=== PATIENT | female | born 1995 | race African-American/Black ===

== ENCOUNTER 2017-12-22 08:10 | Emergency (ER) | payer SELFPAY ==
[~2017-12-22] VITALS: Ht 172.7 cm; Wt 85.5 kg
[2017-12-22 08:53] LABS: MICROSCOPIC AUTO
[2017-12-22 08:55] LABS: CULTURE INDICATED? YES
[2017-12-22 09:42] VITALS: BP 131/81
[2017-12-22 09:47] LABS: HCG UR SG 1.021 (1.003-1.030)
[2017-12-22 10:03] LABS: CLUE CELLS NONE SEEN (NONE SEEN); WET PREP WBCS FEW (FEW)
[2017-12-22] MEDS ORDERED: CEFTRIAXONE 250 MG ONE (10:13)
[2017-12-22] MEDS ORDERED: AZITHROMYCIN 250 MG TABLET ONE (10:14)
[2017-12-22] MEDS ORDERED: AZITHROMYCIN 500 MG TABLET PO ONE (11:00)
[2017-12-22] MEDS ORDERED: FLUCONAZOLE 100 MG TABLET PO ONE (11:00)
[2017-12-22] MEDS ORDERED: CEFTRIAXONE 250 MG IM ONE (11:00)
== END 2017-12-22 10:45 | disposition home or self-care (01) ==
LOC: ED 08:47
DX: B37.3 Candidiasis of vulva and vagina (principal); F17.200 Nicotine dependence, unspecified, uncomplicated; R82.99 Other abnormal findings in urine
CPT/HCPCS: 81001; 81025; 87086; 87210; 87491; 87591; 87808; 96372; 99284; J0696

== ENCOUNTER 2018-12-12 08:10 | Emergency (ER) | payer OTHER ==
[~2018-12-12] VITALS: Ht 175.3 cm; Wt 87.5 kg
[2018-12-12 08:11] VITALS: BP 130/86
[2018-12-12] MEDS ORDERED: SULF1TAB24 PO (08:23)
[2018-12-12] MEDS ORDERED: FLUCONAZOLE 100 MG TABLET ONE (08:46)
[2018-12-12] MEDS ORDERED: FLUCONAZOLE 50 MG TABLET PO ONE (09:00)
[2018-12-12 09:15] LABS: ANION GAP 6 mmol/L (5-15); CHLORIDE 106 mmol/L (98-107); CREATININE 0.93 mg/dL (0.55-1.02)
[2018-12-12 09:22] LABS: MEAN CORPUSCULAR HEMOGLOBIN 23.7 pg (27.0-34.8); MEAN CORPUSCULAR HGB CONC 31.8 g/dL (32.4-35.8); MEAN CORPUSCULAR VOLUME 74.7 fL (80-100); MEAN PLATELET VOLUME 7.9 fL (7.4-10.4); PLATELET COUNT 342 x10^3/uL (130-400)
[2018-12-12 09:24] LABS: BASOPHILS # (AUTO) 0.03 x10^3/uL (0-0.1); BASOPHILS % (AUTO) 0 % (0-1); EOSINOPHILS # (AUTO) 0.31 x10^3/uL (0-0.4); EOSINOPHILS % (AUTO) 4 % (1-7); LYMPHOCYTES # (AUTO) 1.09 x10^3/uL (1-3.4); LYMPHOCYTES % (AUTO) 15 % (22-44); MD SCAN; MONOCYTES % (AUTO) 5 % (2-9); NEUTROPHILS # (AUTO) 5.59 x10^3/uL (1.8-6.8); NEUTROPHILS % (AUTO) 75 % (42-75)
--- NOTE | 2018-12-12 10:42 | NUR ---
Patient/Caregiver given discharge instructions and they have confirmed that they understand the instructions. Patient ambulatory with steady gait.
== END 2018-12-12 10:43 | disposition home or self-care (01) ==
LOC: ED 09:38
DX: B37.3 Candidiasis of vulva and vagina (principal); D50.0 Iron deficiency anemia secondary to blood loss (chronic); J45.909 Unspecified asthma, uncomplicated
CPT/HCPCS: 36415; 80048; 84443; 84703; 85025; 99283

== ENCOUNTER 2019-05-09 06:40 | Day surgery (SDC) | payer OTHER ==
[~2019-05-09] VITALS: Ht 175.3 cm; Wt 85.1 kg
[~2019-05-09 06:40] MED LIST: DEPO; OMEP10CA4 PO; SULF1TAB24 PO
[2019-05-09] MEDS ORDERED: LACTATED RINGERS 1,000 ML IV SCH (07:11)
[2019-05-09 07:12] VITALS: BP 125/85
[2019-05-09] MEDS ORDERED: FENTANYL PF 250 MCG/5ML ONE (07:42)
[2019-05-09] MEDS ORDERED: MIDAZOLAM 1 MG/ML, 2ML ONE (07:42)
[2019-05-09] MEDS ORDERED: WATER-INJECTION,STERILE 10 ML IV ONE (07:43)
[2019-05-09] MEDS ORDERED: CEFAZOLIN 1,000 MG ONE ×2 (07:43)
[2019-05-09 07:44] LABS: HCG UR SG 1.017 (1.003-1.030)
[2019-05-09] MEDS ORDERED: ROPIvacaine/PF 0.5%, 30 ML ONE (07:45)
[2019-05-09] MEDS ORDERED: BUPIVACAINE/PF 0.25% ONE (07:45)
[2019-05-09] MEDS ORDERED: EPINEPHRINE 1 MG/ML, 1ML ONE (08:16)
[2019-05-09] MEDS ORDERED: BUPIVACAINE/PF 0.5% ONE (08:16)
[2019-05-09] MEDS ORDERED: LIDOCAINE 1%, 20ML ONE (08:16)
[2019-05-09] MEDS ORDERED: DEXAMETHASONE 4 MG/ML, 5ML ONE (08:16)
[2019-05-09] MEDS ORDERED: MEPERIDINE/PF 25MG/0.5ML IVPush PRN (09:30)
[2019-05-09] MEDS ORDERED: ALBUTEROL SULFATE 2.5 MG/3 ML NPPB PRN (09:30)
[2019-05-09] MEDS ORDERED: ACETAMINOPHEN 325 MG TABLET PO PRN (09:30)
[2019-05-09] MEDS ORDERED: PROMETHAZINE 25 MG/ML, 1ML IV PRN (09:30)
[2019-05-09] MEDS ORDERED: hydrALAzine 20 MG/ML, 1ML IV PRN (09:30)
[2019-05-09] MEDS ORDERED: OXYcodone 5 MG/5 ML ORAL.SOL UDC PO PRN (09:30)
[2019-05-09] MEDS ORDERED: HYDROmorphone 2 MG/ML, 1ML IVPush PRN (09:30)
[2019-05-09] MEDS ORDERED: FENTANYL PF 100 MCG/2ML IV PRN (09:30)
[2019-05-09] MEDS ORDERED: HALOPERIDOL 5 MG/ML IV PRN (09:30)
[2019-05-09] MEDS ORDERED: PROMETHAZINE 25 MG/ML, 1ML ONE (10:58)
[2019-05-09] MEDS ORDERED: ACETAMINOPHEN 650 MG/20.3 ML UDC ONE (11:21)
[2019-05-09] MEDS ORDERED: OXYcodone 5 MG/5 ML ORAL.SOL UDC ONE (11:22)
[2019-05-09] MEDS ORDERED: DEXAMETHASONE 4 MG/ML, 1ML ONE (15:23)
[2019-05-09] MEDS ORDERED: METOCLOPRAMIDE 5 MG/ML, 2ML ONE (15:23)
[2019-05-09] MEDS ORDERED: ONDANSETRON 2MG/ML, 2ML ONE (15:23)
[2019-05-09] MEDS ORDERED: PROPOFOL 10 MG/ML, 20ML ONE (15:23)
== END 2019-05-09 13:10 | disposition home or self-care (01) ==
LOC: OUT 06:40
PROVIDERS: ATTEND Podiatrist Foot & Ankle Surgery
DX: Q66.52 Congenital pes planus, left foot (principal); Q66.89 Other specified congenital deformities of feet; J45.909 Unspecified asthma, uncomplicated; Z91.010 Allergy to peanuts; Z79.899 Other long term (current) drug therapy
CPT/HCPCS: 27687; 28238; 28300; 64445; 64447; 81025; C1713; C1776; J0171; J0690; J1100; J2250; J2405; J2550; J2704; J2765; J2795; J3010; J3490; J7120

== ENCOUNTER 2019-05-17 16:53 | Emergency (ER) | payer OTHER ==
[~2019-05-17] VITALS: Ht 175.3 cm; Wt 85.0 kg
[2019-05-17 16:56] VITALS: BP 128/81
--- NOTE | 2019-05-17 17:14 | NUR ---
PT STATES SHE THINKS SHE HAD AN ALLERGIC REACTION TO SOMETHING IN THE FOOD SHE ATE BECUASE SHE HAD SWELLING OF THE LIPS AND EYES THAT WENT AWAY AFTER 50MG OF PO BENADRYL. 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 PT DENIES SYMPTOMS AT THIS TIME. PT DENIES SOB, DIFFICULTY SWALLOWING. BF AT BEDSIDE.
[2019-05-17] MEDS ORDERED: FAMOTIDINE 20 MG TABLET ONE (17:44)
[2019-05-17] MEDS ORDERED: FAMOTIDINE 20 MG TABLET PO ONE (18:00)
== END 2019-05-17 19:02 | disposition home or self-care (01) ==
LOC: ED 18:50
DX: T78.40XA Allergy, unspecified, initial encounter (principal); R21 Rash and other nonspecific skin eruption; J45.909 Unspecified asthma, uncomplicated; X58.XXXA Exposure to other specified factors, initial encounter
CPT/HCPCS: 99283; J7512

== ENCOUNTER 2019-05-28 06:47 | Emergency (ER) | payer OTHER ==
[~2019-05-28] VITALS: Ht 175.3 cm; Wt 83.6 kg
--- NOTE | 2019-05-28 07:15 | NUR ---
PT C/O SOB FOR 2 WEEKS, BLOODY STOOL FOR LAST 2 DAYS, FEVER OF 101 LAST NIGHT, AND JUST "NOT FEELING RIGHT". PT HAD ANKLE SURG 2 WEEKS AGO AND IS USING A SCOOTER FOR MOBILITY.
--- NOTE | 2019-05-28 07:17 | NUR ---
PT ON MEDICAL RESEARCH TECH. FAMILY AT BEDSIDE. NAD.
[2019-05-28] MEDS ORDERED: SODIUM CHLORIDE FLUSH 10ML SYR IVF ONE (07:30)
[2019-05-28] MEDS ORDERED: ONDANSETRON 2MG/ML, 2ML IVPush ONE (07:30)
[2019-05-28] MEDS ORDERED: SODIUM CHLORIDE 0.9% 1,000ML IVBOLUS ONE (07:30)
[2019-05-28] MEDS ORDERED: ONDANSETRON ODT 4 MG ONE (07:42)
--- NOTE | 2019-05-28 07:45 | NUR ---
Per erp Dr. Castro and rio Quijano no need for edithimer lab.
--- NOTE | 2019-05-28 07:50 | NUR ---
IV STARTED, BOLUS RUNNING. VSS. NAD. LAB AT BEDSIDE.
--- NOTE | 2019-05-28 07:53 | NUR ---
PT DECLINES ZOFRAN.
[2019-05-28 08:09] LABS: MEAN CORPUSCULAR HGB CONC 31.8 g/dL (32.4-35.8); MEAN CORPUSCULAR VOLUME 75.4 fL (80-100); MEAN PLATELET VOLUME 7.5 fL (7.4-10.4); PLATELET COUNT 524 x10^3/uL (130-400); RED BLOOD COUNT 4.19 x10^6/uL (3.82-5.3); RED CELL DISTRIBUTION WIDTH 17.8 % (9.6-15.2)
[2019-05-28 08:13] LABS: ALANINE AMINOTRANSFERASE 18 U/L (12-78); ALBUMIN 3.4 g/dL (3.4-5.0); ANION GAP 7 mmol/L (5-15); CALCIUM 9.1 mg/dL (8.5-10.1); CHLORIDE 112 mmol/L (98-107); CREATININE 0.87 mg/dL (0.55-1.02)
[2019-05-28 08:15] LABS: ALKALINE PHOSPHATASE 57 U/L (45-117); BILIRUBIN,TOTAL 0.3 mg/dL (0.2-1.0); TOTAL PROTEIN 7.8 g/dL (6.4-8.2)
[2019-05-28 08:21] LABS: BASOPHILS # (AUTO) 0.04 x10^3/uL (0-0.1); BASOPHILS % (AUTO) 1 % (0-1); EOSINOPHILS % (AUTO) 1 % (1-7); LYMPHOCYTES # (AUTO) 0.99 x10^3/uL (1-3.4); LYMPHOCYTES % (AUTO) 13 % (22-44); MD SCAN; MONOCYTES # (AUTO) 0.42 x10^3/uL (0.2-0.8); MONOCYTES % (AUTO) 6 % (2-9); NEUTROPHILS # (AUTO) 5.86 x10^3/uL (1.8-6.8); NEUTROPHILS % (AUTO) 79 % (42-75)
--- NOTE | 2019-05-28 08:26 | NUR ---
Patient is resting comfortably in bed. Vital Signs within normal limits.
[2019-05-28 09:29] VITALS: BP 138/82
--- NOTE | 2019-05-28 09:38 | NUR ---
Patient/Caregiver given discharge instructions and they have confirmed that they understand the instructions. Patient ambulatory with steady gait.
== END 2019-05-28 09:44 | disposition home or self-care (01) ==
LOC: ED 08:58
DX: K62.5 Hemorrhage of anus and rectum (principal); D50.0 Iron deficiency anemia secondary to blood loss (chronic)
CPT/HCPCS: 36415; 74021; 80053; 83690; 85025; 99284; J7030